=== PATIENT | male | born 1995 | race Two or more races ===

== ENCOUNTER 2021-09-12 13:59 | Outpatient (CLI) | payer OTHER ==
[2021-09-12 15:24] VITALS: BP 119/70
--- NOTE | 2021-09-12 15:24 | SLEEP CARE CONSULTATION ---
Information from patient questionnaire entered by Marilin Chaudhari MA. I have reviewed and concur with the information entered by Marilin Chaudhari MA. This document represents the service I personally performed and the decisions made by , Karma Koo ARNP. History of Present Illness Service Date and Time: 09/12/2021 1359 Reason for Visit: New patient (ONSET 09/12, NO PRIORS, ) Chief Complaint: reports: Insomnia, Unrefreshed sleep, Snoring, Excessive daytime sleepiness, Observed pauses in breathing, Fatigue, Frequent awakenings at night Date of Onset: 2 YEARS Usual bedtime: 1030 PM Time it takes to fall asleep: 1 HOUR Snores at night: Yes Observed to quit breathing while asleep: Yes Sleeps alone due to snoring: No Number of times waking at night: 5-6 AVERAGE Reasons for waking at night: reports: Choking, Snoring, Gasping for air Toss, Turn, or Twitch while sleeping: Yes Recalls having dreams: No Usually gets out of bed at: 0600 Feels refreshed in the morning: No Morning headache: Yes Sleepy or fatigued during the day: Yes Ever fallen asleep while driving: Yes (drowsy driving, no accidents) Takes day naps: Yes (4-5 days a week on work days) Dreams during day naps: No Prior sleep studies: No Additional HPI information: I had the pleasure of seeing MAYRA PEREZ today regarding the possibility of him having a sleep disorder. His current complaints are excessive daytime sleepiness, fatigue, frequent night awakenings, insomnia, observed pauses in breathing, unrefreshed sleep and snoring. He states he has nasal congestion at night that delays him being able to get to sleep because he has a hard time breathing. His brother has been sleeping in same room with him because he is worried about his breathing pauses and choking in his sleep. The patient tells me that he normally goes to bed around 10:30 pm, and it takes him approximately 60 minutes to fall asleep. He has been told that he snores loudly and irregularly at night. He has been observed to stop breathing in his sleep. He can recall waking up on the average of 5-6 times during the night. He has occasionally awakened for his own snoring, choking, and having to gasp for air. There is a lot of tossing and turning in his sleep. Generally there is no recollection of dreams. He usually wakes up at 0600 unless he has a really rough night and does not feel refreshed. He usually does have a morning headache. He states about 2-3 times a week he wakes up with headaches. He states this is when he is snoring hard or "not breathing well". During the day he complains of feeling sleepy and fatigued. He has fallen asleep while driving and has gone out of the tu, no accident. He usually naps for about 45 minutes to 2 hours during the day almost 4-5 days a week. If he naps, upon falling asleep during the day he admits to having some dreams. There is somniloquy (sleep talking) but no somnambulism (sleep walking). He has experienced sleep paralysis, cataplexy, or symptoms of restless leg syndrome. He reports having impaired concentration during the day. 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 Patient is Single and lives in . Have you smoked in the past 12 months: Yes (he vapes) Cigarettes per day (20/pack): 15 Years of smokin Smoking Pack Years: 0.7 Alcohol use: Yes Alcohol amount and frequency: 3 X MONTHLY, rarely Caffeine use: Yes Caffeine amount and frequency: 1 X DAILY Family History Family history of sleep disordered breathing: Yes Family Hx Sleep Apnea: Mother: Snoring, Father: Snoring, Sleep apnea - Treated Allergies and Home Medications Known drug allergies: No Drug allergies reviewed: Yes (NKDA) Home medication list reviewed: Yes Allergy and home medication list: Medications: Zyprexa Lexapro Omeprazole Ibuprofen, prn Review of Systems Weight gain over past 5 years: 30 lbs Cardiovascular: reports: palpitations, chest pain Respiratory: reports: shortness of breath, wheeze Gastrointestinal: reports: heartburn, difficulty swallowing, abdominal pain Neurological: reports: headaches Psychiatric: reports: anxiety, depression, mood disorder (PTSD) Ear/Nose/Throat: reports: nasal congestion, sinus problems, dry mouth/throat. denies: tonsillectomy, wisdom teeth removed (has bottom wisdom teeth, others did not come in) Endocrine: reports: sluggishness, increased appetite, unexplained weakness Musculoskeletal: reports: joint pain, neck pain, back pain, muscle pain or cramping Physical Exam Vital signs obtained and entered by: Med CHAUDHARI CMA AANEYMAR Blood Pressure: 119/70 (RR 14) Cuff size: wrist Heart Rate: 110 O2 Saturation: 96 (paper mask) Height: 5 ft 9 in Weight: 223 lb (with boots) Body Mass Index: 32.9 BMI Classification: Obese Neck circumference: 17.5 (inches) Mouth and throat: narrow oropharynx Soft palate: long Hard palate: normal Uvula: normal Uvula visualization: 25% Mallampati Class III Tongue: enlarged in size with teeth lopez on lateral edges Tonsils: 2+ Chin and jaw: Micrognathia Neck: normal w/o lymphadenopathy or thyromegaly Heart: regular rate and rhythm Lungs: clear bilaterally Impression and Plan 1. Suspected Obstructive Sleep Apnea-Hypopnea Syndrome, as suggested by a history of loud and irregular snoring, observed cessation of breath while asleep, gasping or choking in sleep, morning headache, frequent awakening during the night, unrefreshed sleep, cognitive impairment, and excessive daytime sleepiness. Narrow oropharynx and obesity are common predisposing factors for obstructive sleep apnea-hypopnea syndrome. I recommend proceeding to polysomnography to confirm the diagnosis and to assess severity. If the patient has significant sleep disordered breathing, a manual CPAP titration study will also be performed to find the optimal treatment pressure. I informed the patient of what the sleep studies involve and after some discussion, obtained agreement to proceed. The pathophysiology of obstructive sleep apnea-hypopnea syndrome was discussed with the patient and health risks of cardiovascular and cerebrovascular disease if not treated. Risks of drowsy driving discussed in detail and patient advised to avoid long distance driving and to pulling machine operator at the first sign of drowsiness. Patient agreed to plan. * Schedule polysomnography +- manual CPAP titration study and return in 1-2 weeks after the study to discuss results. * Avoid long distance driving or driving when feeling sleepy. * Avoid alcohol, sedative and muscle relaxant around bedtime. * Attempt to lose weight. * Review instructions provided by trained office staff on how to prepare for the sleep study. * Return for follow-up after sleep study completed. Counseling Topics: Weight loss health impact Visit Type: In Office Time Spent with Patient (minutes): 30 Provider Statement: I spent 100% of the Face to Face Visit with the patient with greater than 50% spent counseling the patient and coordination of care.
== END 2021-09-12 14:00 | disposition home or self-care (01) ==
LOC: SC 13:59
PROVIDERS: ATTEND Nurse Practitioner Family
DX: R06.83 Snoring (principal); R41.89 Other symptoms and signs involving cognitive functions and awareness; G47.10 Hypersomnia, unspecified; E66.9 Obesity, unspecified; Z68.32 Body mass index [BMI] 32.0-32.9, adult
CPT/HCPCS: 99203; 99212

== ENCOUNTER 2021-10-03 20:29 | Outpatient (CLI) | payer OTHER | END 2021-10-03 20:30 | disposition home or self-care (01) | LOC: SC 20:29 | PROVIDERS: ATTEND Nurse Practitioner Family | DX: G47.33 Obstructive sleep apnea (adult) (pediatric) (principal) | CPT/HCPCS: 95810 ==

== ENCOUNTER 2021-10-10 13:39 | Outpatient (CLI) | payer OTHER ==
[2021-10-10 14:28] VITALS: BP 144/95
--- NOTE | 2021-10-10 14:28 | SLEEP CARE CONSULTATION ---
Information from patient questionnaire entered by Marilin Frank MA. I have reviewed and concur with the information entered by Marilin Frank MA. This document represents the service I personally performed and the decisions made by , Karma Koo ARNP. History of Present Illness Service Date and Time: 10/10/2021 1339 Initial [place] Sleepiness Scale score: 19 (08/2021) Current [place] Sleepiness Scale score: 19 Additional HPI information: MAYRA PEREZ returns for follow up and results of the recently performed polysomnography. I explained the pathophysiology behind obstructive sleep apnea. We then spent quite a bit of time discussing different treatment options. For mild obstructive sleep apnea, surgery and oral appliance are alternatives to nasal CPAP therapy but in moderate or severe cases, nasal CPAP is the most effective and reliable treatment. I reviewed the impact of weight changes on sleep apnea and strongly recommended losing weight. After some discussion, the patient opted to go with the nasal CPAP therapy. Nasal autoCPAP set at 5-20 cmH20 will be ordered with rationale explained. A manual titration study will be ordered if unable to find optimal pressure with office adjustments. I explained how CPAP machine works and what to expect when using the machine. Using CPAP every night in order to get used to it was emphasized. Patient advised to put CPAP mask on before getting into bed so as not to fall asleep without CPAP. To assist acclimation to CPAP use, it could also be used for a short time during day while reading or watching TV. The patient was instructed to call the CPAP supplier to discuss any mechanical problem that may occur. If the mask given is uncomfortable or is difficult to keep on through the night even with adjustment, contact the CPAP supplier as many will replace with another mask style if notified before 30 days. If snoring or perceives is not getting enough air or too much air from the machine, notify this office. Patient counseled not drink alcohol less than 4 hours before bedtime as it can increase snoring and apnea. Patient was cautioned about risks of drowsy driving until sleepiness symptoms resolve. Patient denies drowsy driving. Sleep Study - Results Type of Sleep Study: Polysomnography (F/U POLY, 09/03/2021 [facility],) Prior sleep studies: No Polysomnography/Home Sleep Study results: IMPRESSION: The quality of the study is good. The patient had slightly reduced sleep efficiency due to a prolonged awakening in the middle of the night. The sleep architecture was abnormal for sleep fragmentation and reduced amount of time spent in slow wave sleep (N3). Respiratory monitoring showed severe obstructive sleep apnea-hypopnea (AHI = 53.5) associated with frequent arousals, oxyhemoglobin desaturation and moderate hypoxia (christiano oxygen saturation of 77%). The respiratory events occurred independently of sleep stage and body position (supine AHI = 55.3; non-supine = 49.03). Snore was moderate to loud in intensity. There was no significant periodic leg movement of sleep. Cardiac rhythm was normal sinus rhythm without significant arrhythmia. No abnormal behavior (parasomnia) observed during the night. Allergies and Home Medications Home medication list reviewed: Yes (no changes) Review of Systems Review of systems same as previous: Yes (no changes) Physical Exam Vital signs obtained and entered by: TRICIA BUCHANAN Blood Pressure: 144/95 (resp 20, pulse 111) Cuff size: wrist Heart Rate: 115 O2 Saturation: 96 (paper mask) Height: 5 ft 9 in Weight: 220 lb (uniform and boots) Body Mass Index: 32.5 BMI Classification: Obese Impression and Plan 1. Obstructive Sleep Apnea-Hypopnea Syndrome, severe, with lowest oxygen saturation of 77%. Obviously this is the cause of the patients symptoms of unrefreshed sleep, and excessive daytime sleepiness. Positive pressure therapy could benefit anxiety, depression, PTSD and gastric reflux. As mentioned above, the patient will be started on nasal autoCPAP therapy with pressure set at 5-20 cmH2O. A manual titration study will be completed if unable to find optimal treatment pressure with office adjustments. Compliance guidelines also reviewed. A copy of compliance guidelines will be given for reference at check out. 2. Hypoxemia, moderate, with a low oxygen saturation of 77% with 38.5 minutes spent under 89%. His baseline oxygen saturation was normal with an average oxygen saturation of 92%. * Nasal auto CPAP therapy, pressure at 5-20 cm H2O. * Attempt to lose weight. * Avoid alcohol consumption near bedtime. * Avoid supine sleep until using CPAP. * The patient is again cautioned about driving until sleepiness completely resolves. * Return one month after CPAP obtained. I will assess response to therapy and compliance at that time. Counseling Topics: Weight loss health impact Visit Type: In Office Time Spent with Patient (minutes): 20 Provider Statement: I spent 100% of the Face to Face Visit with the patient with greater than 50% spent counseling the patient and coordination of care.
== END 2021-10-10 13:40 | disposition home or self-care (01) ==
LOC: SC 13:39
PROVIDERS: ATTEND Nurse Practitioner Family
DX: G47.33 Obstructive sleep apnea (adult) (pediatric) (principal); R09.02 Hypoxemia; E66.9 Obesity, unspecified; Z68.32 Body mass index [BMI] 32.0-32.9, adult
CPT/HCPCS: 99212; 99213

== ENCOUNTER 2021-11-06 18:14 | Emergency (ER) | payer OTHER ==
[2021-11-06] MEDS ORDERED: KETOROLAC 60 MG/2 ML VIAL IM STA (18:49)
--- NOTE | 2021-11-06 19:06 | ED Physician Documentation ---
History of Present Illness - Stated complaint Stated Complaint: Lower back pain - Chief complaint Chief Complaint: Back Pain - Additonal information Additional information: 26-year-old male presents emergency department for evaluation of acute lower lumbar pain sustained when he sat up too suddenly. He has had sharp pain in his lower back since then. Nonradiating. Did not resolve with Kailee back pain relief. Has had this intermittently through the years. No saddle anesthesia loss of bowel or bladder coordination. No history of cancer injection drug use or immune compromise. Review of Systems Eyes: reports: Reviewed and negative Cardiac: reports: Reviewed and negative Respiratory: reports: Reviewed and negative GI: reports: Reviewed and negative Skin: reports: Reviewed and negative Musculoskeletal: reports: Back pain PD PAST MEDICAL HISTORY - Present Medications Home Medications: Ambulatory Orders Medication Instructions Recorded Confirmed Cyclobenzaprine [Flexeril] 10 mg PO TID PRN #20 tablet 11/06/21 Escitalopram Oxalate [Lexapro] 20 mg PO DAILY 11/06/21 11/06/21 HYDROcod/ACETAM 5/325 [Fielding 5/325] 1 tablet PO BID PRN #10 tablet 11/06/21 Ibuprofen [Motrin] 600 mg PO Q6H PRN #30 tab 11/06/21 OLANZapine [Zyprexa] 2.5 mg PO DAILY 11/06/21 11/06/21 - Allergies Allergies/Adverse Reactions: Allergies Allergy/AdvReac Type Severity Reaction Status Date / Time No Known Drug Allergies Allergy Verified 11/06/21 19:04 - Social History Does the pt smoke?: No Smoking Status: Never smoker PD ED PE NORMAL - General General: Alert and oriented X 3. No: No acute distress (Appears to be in pain) - HEENT HEENT: Atraumatic, Moist mucous membranes - Neck Neck: Supple, no meningeal sign, No JVD - Cardiac Cardiac: RRR, No murmur - Respiratory Respiratory: No respiratory distress - Abdomen Abdomen: Normal bowel sounds, Soft - Back Back: No CVA TTP, No spinal TTP (Pain across the lower lumbar paraspinous muscles. Reduced forward flexion secondary to pain. Motor strength 5 of 5 bilateral lower extremities. 2+ patellar reflexes. No paresthesias.) - Derm Derm: Normal color, Warm and dry, No rash - Extremities Extremities: No deformity, No tenderness to palpate, Normal ROM s pain - Neuro Neuro: Alert and oriented X 3, juice weigher 2-12 intact Eye Opening: Spontaneous Motor: Obeys Commands Verbal: Oriented GCS Score: 15 Results - Vitals Vitals: Vital Signs - 24 hr 11/06/21 18:22 Temperature 36.6 C Heart Rate 120 H Respiratory 18 Rate Blood Pressure 162/93 H O2 Saturation 99 Oxygen O2 Source Room air PD MEDICAL DECISION MAKING - ED course Complexity details: considered differential, d/w patient ED course: Well-appearing 26-year-old male presents emergency department for evaluation of 2 days acute low back pain that began when he sat up suddenly. Has had persistent pain in the low back. He did drive here to the ER. Clinically there are no red flags but there is pain across the lower lumbar paraspinous muscles. He was feeling better with Toradol. He will be prescribed ibuprofen, Flexeril as well as a very limited amount of Fielding. He does have an appointment with his PCP tomorrow. Otherwise emergent return precautions discussed. I am prescribing a short course of short-acting opioid pain medication for this patient. 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 I have discussed that the opioids are for short term therapy only, and will not be refilled from the ED. Departure - Departure Disposition: 01 Home, Self Care Clinical Impression: Low back pain Qualifiers: Chronicity: acute Back pain laterality: bilateral Sciatica presence: without sciatica Qualified Code(s): M54.50 - Low back pain, unspecified Condition: Stable Instructions: ED Back Spasm No Trauma Ch Prescriptions: Cyclobenzaprine [Flexeril] 10 mg PO TID PRN #20 tablet PRN Reason: Spasms Ibuprofen [Motrin] 600 mg PO Q6H PRN #30 tab PRN Reason: Pain HYDROcod/ACETAM 5/325 [Fielding 5/325] 1 tablet PO BID PRN #10 tablet PRN Reason: Pain Comments: Jose you are seen today in the emergency department for pain in your lower back. It is likely that you have some mild disc herniation or degenerative disc disease. I would like you to fill the prescription for the ibuprofen and take 3 times a day with food for the next 5 to 6 days. A limited prescription for Flexeril a muscle relaxer has also been sent. For more severe pain only 10 tabl ets of Fielding have been ordered. Please follow-up with your primary care provider tomorrow. Most episodes of back pain will begin to resolve after 3 to 7 days. However you may benefit from referral to physical therapy. At any point you develop numbness or tingling in your genital area, lose control of your bowel or bladder function, have sudden weakness in your legs and please return immediately to the ER for second evaluation. I am prescribing a short course of narcotic pain medication for you. These are potentially dangerous and addictive medications that should be used carefully. These medications may constipate you. Take an [id number] stool softener (docusate) twice daily with plenty of water while taking these medications. If you go 24 hours without a bowel movement, take [id number] miralax, per package instructions. Do not drink or drive while taking these medications. If you received narcotic or sedating medications while in the emergency department, do not drive for 24 hours. Store this medication in a safe, secure place and out of reach of children. It is a violation of federal law to give or sell this medication to another person or to use in a manner other than prescribed. The ED will not refill narcotic prescriptions, including prescriptions lost or stolen. To dispose of unwanted medications: 1. [facility] [address] in [place] has a medication drop box. They accept prescription medications (in pill form) Friday through Friday 9:00 a.m. to 5:00 p.m. 2. The [facility] [employer] Department accepts prescription medications (in pill form only) for disposal year round. Call for more information. 3. Contact the [facility] for the next [facility] sponsored prescription drug collection event. , [phone], or [phone]; Note that many narcotic pain relievers also contain Tylenol/acetaminophen. Please ensure that your total dose of acetaminophen from all sources does not exceed 3 g (3000 mg) per day.
[2021-11-06 20:08] VITALS: BP 155/105
== END 2021-11-06 20:08 | disposition home or self-care (01) ==
LOC: ED 18:14
DX: M54.50 Low back pain, unspecified (principal)
CPT/HCPCS: 96372; 99282; 99283